=== PATIENT | female | born 2000 | race Caucasian/White ===

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

== ENCOUNTER 2020-03-13 18:11 | Emergency (ER) | payer OTHER ==
[~2020-03-13] VITALS: Ht 162.6 cm; Wt 73.7 kg
[~2020-03-13 18:11] MED LIST: TYLETAB14 PO
[2020-03-13] MEDS ORDERED: IBUP200C25 PO (18:17)
[2020-03-13 19:44] LABS: BASO # 0.1 10^3/uL (0.0-0.2); BASO % 0.7 % (0.0-1.0); EOS # 0.3 10^3/uL (0.0-0.5); EOS % 3.9 % (0.0-3.0); HEMATOCRIT 41.2 % (36.0-47.0); HEMOGLOBIN 13.2 g/dl (12.0-15.5); LYMPH # 1.9 10^3/uL (1.5-5.0); LYMPH % 22.5 % (24.0-44.0); MEAN CORPUSCULAR HEMOGLOBIN 28.7 pg (27.0-33.0); MEAN CORPUSCULAR VOLUME 89.6 fl (80.0-96.0); MONO # 0.4 10^3/uL (0.0-0.8); MONO % 5.2 % (0.0-5.0); NEUTROPHILS # 5.7 10^3/uL (1.5-8.5); NEUTROPHILS % 67.5 % (36.0-66.0); PLATELET COUNT, AUTOMATED 268 10^3/uL (150-450); WHITE BLOOD COUNT 8.4 10^3/uL (4.0-10.0)
[2020-03-13] MEDS ORDERED: NS 1,000 ML IV ONE (19:45)
[2020-03-13 20:11] LABS: HCG, SERUM QUALITATIVE NEGATIVE (NEGATIVE)
[2020-03-13 20:13] LABS: ALBUMIN 3.6 GM/DL (3.2-5.2); ALT/SGPT 27 U/L (12-78); BILIRUBIN,DIRECT < 0.1 MG/DL (0.0-0.2); BILIRUBIN,TOTAL 0.2 MG/DL (0.2-1.0); BLOOD UREA NITROGEN 13 MG/DL (7-18); CALCIUM LEVEL 8.6 MG/DL (8.5-10.1); CARBON DIOXIDE LEVEL 27 MEQ/L (21-32); CHLORIDE LEVEL 108 MEQ/L (98-107); CREATININE FOR GFR 0.85 MG/DL (0.55-1.30); GLUCOSE, FASTING 97 MG/DL (70-100); LIPASE 61 U/L (73-393); POTASSIUM SERUM 4.3 MEQ/L (3.5-5.1); SODIUM LEVEL 138 MEQ/L (136-145); TOTAL PROTEIN 7.5 GM/DL (6.4-8.2)
--- NOTE | 2020-03-13 20:33 | REPVR ---
PROCEDURE INFORMATION: Exam: US Nonobstetric Pelvis; Complete Exam date and time: 03/13/2020 7:56 PM Age: 19 years old Clinical indication: Pelvic pain; Additional info: Rlq pain x1wk R/O ovarian cyst TECHNIQUE: Imaging protocol: Transabdominal pelvic nonobstetric ultrasound. Complete exam. Real time ultrasound with image documentation. COMPARISON: No relevant prior studies available. FINDINGS: Uterus/cervix: Uterus measures 6.7 x 2.9 x 3.7 cm. Endometrial echo complex measures 6.3 mm. Right adnexa: Right ovary measures 3.8 x 3 x 2.6 cm. Normal flow. Resistive index 0.5. 1.9 x 1.8 x 1.7 cm simple cyst right ovary likely functional. Complex echogenic tubular shaped structure adjacent to the right ovary measures 4.6 x 2.3 x 4 cm. Finding may represent a dilated tube. Left adnexa: Left ovary measures 2.8 x 1.3 x 1.6 cm. Normal flow. Complex tubular structure adjacent to the left ovary measures 4.7 x 2.8 x 3.9 cm may represent a dilated tube Intraperitoneal space: No intraperitoneal free fluid. Urinary bladder: Normal. IMPRESSION: 1. Bilateral tubular shaped complex para ovarian masses. Findings may represent a dilated fallopian tube. Differential diagnosis includes endometriosis, pelvic inflammatory disease and least likely considering age group a mass. Further evaluation could be obtained with pelvic MRI if clinically desired. 2. Otherwise unremarkable. Electronically signed by: Adriel Waller On 03/13/2020 20:33:04 PM
[2020-03-13 21:25] VITALS: BP 125/69
[2020-03-13 23:02] LABS: CHLAMYDIA DNA AMPLIFICATION POSITIVE (NEGATIVE); GC DNA AMPLIFICATION NEGATIVE (NEGATIVE)
--- NOTE | 2020-03-14 06:55 | ED PDOC ---
Post-Departure Follow-Up ft joycelyn gaxiola and lionel shepherd faxed formal report of pelvic us for fu Annita Sellers MD Mar 14, 2020 06:55
[2020-03-14] MEDS ORDERED: FLAG500T PO (13:12)
== END 2020-03-13 21:27 | disposition home or self-care (01) ==
LOC: M ED 18:11
DX: R10.2 Pelvic and perineal pain (principal); A74.9 Chlamydial infection, unspecified; N76.0 Acute vaginitis; Z87.891 Personal history of nicotine dependence; R93.5 Abnormal findings on diagnostic imaging of other abdominal regions, including retroperitoneum

== ENCOUNTER 2020-03-14 12:48 | Emergency (ER) | payer OTHER ==
[~2020-03-14] VITALS: Ht 162.6 cm; Wt 75.1 kg
[~2020-03-14 12:48] MED LIST changes: +IBUP200C25 PO
[2020-03-14 12:50] VITALS: BP 120/67
[2020-03-14] MEDS ORDERED: FLAG500T PO (13:12)
[2020-03-14] MEDS ORDERED: LIDOCAINE 1% SDV 5ML VIAL DILUENT ONE (13:15)
[2020-03-14] MEDS ORDERED: AZITHROMYCIN 250MG TABLET PO ONE (13:15)
[2020-03-14] MEDS ORDERED: cefTRIAXone SOD 250MG VIAL (J0696 PER 250MG) IM ONE (13:15)
== END 2020-03-14 13:46 | disposition home or self-care (01) ==
LOC: M ED 12:48
DX: Z74.9 Problem related to care provider dependency, unspecified (principal); N76.0 Acute vaginitis; Z87.891 Personal history of nicotine dependence
CPT/HCPCS: 96372; 99282; J0696